=== PATIENT | female | born 1985 | race American Indian/Alaskan Native ===

== ENCOUNTER 2017-10-13 16:31 | Emergency (ER) | payer OTHER ==
[2017-10-13 16:52] VITALS: BP 138/81
[2017-10-13] MEDS ORDERED: MOTRIN PO ONE (19:26)
[2017-10-13] MEDS ORDERED: FLEXERIL PO ONE (19:26)
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
== END 2017-10-13 19:50 | disposition home or self-care (01) ==
LOC: ED 16:31
DX: M62.838 Other muscle spasm (principal); M62.830 Muscle spasm of back; R51 Headache; V49.09XA Driver injured in collision with other motor vehicles in nontraffic accident, initial encounter; Y93.89 Activity, other specified; Y92.89 Other specified places as the place of occurrence of the external cause; Y99.8 Other external cause status
CPT/HCPCS: 99282